=== PATIENT | male | born 1950 | race Caucasian/White ===

== ENCOUNTER 2016-10-18 07:53 | Emergency (ER) | payer MEDICARE ==
[2016-10-18 08:17] VITALS: BP 126/79
[2016-10-18 08:52] LABS: Urine Bacteria Absent (Absent); Urine Bilirubin Negative (Negative); Urine Glucose 1+(50 mg/dL) (Negative); Urine Nitrite Negative (Negative)
[2016-10-18 09:04] LABS: Hematocrit 47 % (42-52); Hemoglobin 15.9 g/dl (14.0-18.0); Mean Corpuscular HGB Conc 34 g/dl (31-36); Mean Corpuscular Hemoglobin 30 pg (27-31); Mean Corpuscular Volume 90 fL (80-94); Mean Platelet Volume 8 um3 (7.4-10.4); Red Blood Count 5.26 10^6/ul (4.0-5.4); Red Cell Distribution Width 13 % (10.5-15); White Blood Count 9.7 10^3/ul (3.5-10.8)
[2016-10-18 09:19] LABS: BUN/Creatinine Ratio 12.1 (8-20); C Reactive Protein 152.23 mg/L (< 5.00); Calcium 9.1 mg/dL (8.6-10.3); EGFR Non-African American 50.5 (>60); Globulin 3.2 g/dL (2-4); Potassium 3.4 mmol/L (3.5-5.0); Total Bilirubin 1.6 mg/dL (0.2-1.0); Total Protein 7.2 g/dL (6.4-8.9)
[2016-10-18] MEDS ORDERED: Sulfamethox/Trimethoprim DS 800/160* TAB PO ONE (10:03)
--- NOTE | 2016-10-18 10:08 | ED ---
Dewey Molina Matthew, scribed for Bola Esqueda MD on 10/18/16 at 0843 . GI/ HPI - HPI Summary HPI Summary: A 66 y/o male presents to the ED with hematuria since early this morning. The patient had dysuria that began two days ago that mild improved yesterday; however at 24:00 yesterday the discomfort intensified. The pain is described as burning and rated 8/10 in severity. Then at approximately 3:00 today, the patient began to have hematuria. The patient denies bladder spasms, fever, chills, and testicular pain. He is not currently on blood thinners. He has a Hx of an enlarged prostate. The patient has not seen a urologist. - History of Current Complaint Chief Complaint: EDUrogenitalProblems Time Seen by Provider: 10/18/16 08:15 Stated Complaint: BLOOD IN URINE Hx Obtained From: Patient Onset/Duration: Started Hours Ago, Atraumatic, Still Present Timing: Constant Severity: Moderate Current Severity: Moderate Pain Intensity: 8 Additional Locations for Males: Penis Pain Characteristics: Burning Associated Signs and Symptoms: Positive: Hematuria, Dysuria. Negative: Fever, Chills Additional Signs & Symptoms: Negative: Penile Swelling, Penile Discharge Alleviating Factor(s): Nothing - Allergy/Home Medications Allergies/Adverse Reactions: Allergies Allergy/AdvReac Type Severity Reaction Status Date / Time No Known Allergies Allergy Verified 10/18/16 08:04 PMH/Surg Hx/FS Hx/Imm Hx Endocrine/Hematology History: Denies: Hx Diabetes Cardiovascular History: Reports: Hx Hypertension, Other Cardiovascular Problems/ Disorders - Hx HTN Denies: Hx Pacemaker/ICD Musculoskeletal History: Reports: Other Musculoskeletal History - L knee repair Sensory History: Denies: Hx Hearing Aid Psychiatric History: Denies: Hx Panic Disorder - Surgical History Surgery Procedure, Year, and Place: L knee repair , Lower L abdominal fatty tumor removed , cervical spine bone spur removed 2005, R cataract removed 2011 Infectious Disease History: No Infectious Disease History: Denies: Traveled Outside the [place] in Last 30 Days - Family History Known Family History: Positive: Cardiac Disease, Diabetes - Social History Alcohol Use: Occasionally Substance Use Type: Reports: None Hx Tobacco Use: No Smoking Status (MU): Never Smoked Tobacco Review of Systems Constitutional: Negative Negative: Fever, Chills Eyes: Negative ENT: Negative Cardiovascular: Negative Respiratory: Negative Gastrointestinal: Negative Positive: burning, dysuria, hematuria Musculoskeletal: Negative Skin: Negative Neurological: Negative Psychological: Normal All Other Systems Reviewed And Are Negative: Yes Physical Exam Triage Information Reviewed: Yes Vital Signs On Initial Exam: Initial Vitals Temp Pulse Resp BP Pulse Ox 98.7 F 75 16 126/79 97 10/18/16 08:04 10/18/16 08:04 10/18/16 08:04 10/18/16 08:04 10/18/16 08:04 Vital Signs Reviewed: Yes Appearance: Positive: Well-Appearing, No Pain Distress Skin: Positive: Warm, Skin Color Reflects Adequate Perfusion, Dry Head/Face: Positive: Normal Head/Face Inspection Eyes: Positive: EOMI, CHELSIE ENT: Positive: Normal ENT inspection Neck: Positive: Supple, Nontender Cardiovascular: Positive: RRR Abdomen Description: Positive: Soft, Other: - Mild suprapubic tenderness. Negative: Guarding Male Genital Exam: Positive: other - Mild urethral tenderness. Negative: lesions Musculoskeletal: Positive: Normal, Strength/ROM Intact Neurological: Positive: Normal, Sensory/Motor Intact, Alert, Oriented to Person Place, Time Psychiatric: Positive: Anxious - mildly Diagnostics - Vital Signs Vital Signs Temp Pulse Resp BP Pulse Ox 10/18/16 08:04 98.7 F 75 16 126/79 97 - Laboratory Lab Results: Lab Results 10/18/16 10/18/16 10/18/16 Range/Units 08:13 08:55 08:55 WBC 9.7 (3.5-10.8) 10^3/ul RBC 5.26 (4.0-5.4) 10^6/ul Hgb 15.9 (14.0-18.0) g/dl Hct 47 (42-52) % MCV 90 (80-94) fL MCH 30 (27-31) pg MCHC 34 (31-36) g/dl RDW 13 (10.5-15) % Plt Count 153 (150-450) 10^3/ul MPV 8 (7.4-10.4) um3 Neut % (Auto) 85.6 H (38-83) % Lymph % (Auto) 7.5 L (25-47) % [place] % (Auto) 6.0 (1-9) % Eos % (Auto) 0.6 (0-6) % Baso % (Auto) 0.3 (0-2) % Absolute Neuts (auto) 8.3 H (1.5-7.7) 10^3/ul Absolute Lymphs (auto) 0.7 L (1.0-4.8) 10^3/ul Absolute Monos (auto) 0.6 (0-0.8) 10^3/ul Absolute Eos (auto) 0.1 (0-0.6) 10^3/ul Absolute Basos (auto) 0 (0-0.2) 10^3/ul Absolute Nucleated RBC 0 10^3/ul Nucleated RBC % 0 INR (Anticoag Therapy) 1.14 H (0.89-1.11) APTT 28.0 (26.0-36.3) seconds Sodium (133-145) mmol/L Potassium (3.5-5.0) mmol/L Chloride (101-111) mmol/L Carbon Dioxide (22-32) mmol/L Anion Gap (2-11) mmol/L BUN (6-24) mg/dL Creatinine (0.67-1.17) mg/dL Est GFR ( Amer) (>60) Est GFR (Non-Af Amer) (>60) BUN/Creatinine Ratio (8-20) Glucose (70-100) mg/dL Calcium (8.6-10.3) mg/dL Total Bilirubin (0.2-1.0) mg/dL AST (13-39) U/L ALT (7-52) U/L Alkaline Phosphatase (34-104) U/L C-Reactive Protein (< 5.00) mg/L Total Protein (6.4-8.9) g/dL Albumin (3.2-5.2) g/dL Globulin (2-4) g/dL Albumin/Globulin Ratio (1-3) Urine Color Red A Urine Appearance Turbid Urine pH 6.0 (5-9) Ur Specific [place] 1.028 (1.010-1.030) Urine Protein 3+(>=500 mg/dl) H (Negative) Urine Ketones Trace H (Negative) Urine Blood 3+ H (Negative) Urine Nitrate Negative (Negative) Urine Bilirubin Negative (Negative) Urine Urobilinogen Negative (Negative) Ur Leukocyte Esterase Trace H (Negative) Urine WBC (Auto) Absent (Absent) Urine RBC (Auto) 3+(>10/hpf) H (Absent) Urine Bacteria Absent (Absent) Urine Glucose 1+(50 mg/dl) H (Negative) Urine Ascorbic Acid Not Reportable 10/18/16 Range/Units 08:55 WBC (3.5-10.8) 10^3/ul RBC (4.0-5.4) 10^6/ul Hgb (14.0-18.0) g/dl Hct (42-52) % MCV (80-94) fL MCH (27-31) pg MCHC (31-36) g/dl RDW (10.5-15) % Plt Count (150-450) 10^3/ul MPV (7.4-10.4) um3 Neut % (Auto) (38-83) % Lymph % (Auto) (25-47) % [place] % (Auto) (1-9) % Eos % (Auto) (0-6) % Baso % (Auto) (0-2) % Absolute Neuts (auto) (1.5-7.7) 10^3/ul Absolute Lymphs (auto) (1.0-4.8) 10^3/ul Absolute Monos (auto) (0-0.8) 10^3/ul Absolute Eos (auto) (0-0.6) 10^3/ul Absolute Basos (auto) (0-0.2) 10^3/ul Absolute Nucleated RBC 10^3/ul Nucleated RBC % INR (Anticoag Therapy) (0.89-1.11) APTT (26.0-36.3) seconds Sodium 131 L (133-145) mmol/L Potassium 3.4 L (3.5-5.0) mmol/L Chloride 97 L (101-111) mmol/L Carbon Dioxide 24 (22-32) mmol/L Anion Gap 10 (2-11) mmol/L BUN 17 (6-24) mg/dL Creatinine 1.40 H (0.67-1.17) mg/dL Est GFR ( Amer) 65.0 (>60) Est GFR (Non-Af Amer) 50.5 (>60) BUN/Creatinine Ratio 12.1 (8-20) Glucose 133 H (70-100) mg/dL Calcium 9.1 (8.6-10.3) mg/dL Total Bilirubin 1.60 H (0.2-1.0) mg/dL AST 19 (13-39) U/L ALT 23 (7-52) U/L Alkaline Phosphatase 51 (34-104) U/L C-Reactive Protein 152.23 H (< 5.00) mg/L Total Protein 7.2 (6.4-8.9) g/dL Albumin 4.0 (3.2-5.2) g/dL Globulin 3.2 (2-4) g/dL Albumin/Globulin Ratio 1.3 (1-3) Urine Color Urine Appearance Urine pH (5-9) Ur Specific [place] (1.010-1.030) Urine Protein (Negative) Urine Ketones (Negative) Urine Blood (Negative) Urine Nitrate (Negative) Urine Bilirubin (Negative) Urine Urobilinogen (Negative) Ur Leukocyte Esterase (Negative) Urine WBC (Auto) (Absent) Urine RBC (Auto) (Absent) Urine Bacteria (Absent) Urine Glucose (Negative) Urine Ascorbic Acid Result Diagrams: 10/18/16 08:55 10/18/16 08:55 Lab Statement: Any lab studies that have been ordered have been reviewed, and results considered in the medical decision making process. Re-Evaluation - Re-Evaluation First Eval Re-Evaluation Time: 10:01 Change: Improved Comment: The labs were reviewed with the patient. GIGU Course/Dx - Course Assessment/Plan: WELL IN ED. RX BACTRIM. F/U WITH UROLOGY. DISCHARGE HOME STABLE. - Diagnoses Provider Diagnoses: Hematuria, UTI (urinary tract infection) Discharge - Discharge Plan Condition: Stable Disposition: HOME Prescriptions: Sulfamethox/Trimethoprim DS* [Bactrim DS 800/160 TAB*] 1 tab PO BID #20 tab Patient Education Materials: Urinary Tract Infection in Men (ED), Hematuria (ED ) Referrals: Evan Castillo MD [Primary Care Provider] - Real Brown MD [Medical Doctor] - David Bain MD [Medical Doctor] - [facility] [Provider Group] Additional Instructions: FOLLOW UP WITH YOUR DOCTOR AND THE UROLOGIST. DRINK PLENTY OF FLUIDS. RETURN TO THE EMERGENCY DEPARTMENT FOR ANY WORSENING OF YOUR CONDITION; FEVER, YOU FEEL ILL, YOU ARE NOT ABLE TO URINATE OR QUESTIONS OR CONCERNS. The documentation as recorded by the Samson michaelbo,Travis accurately reflects the service I personally performed and the decisions made by me, Bola Esqueda MD.
== END 2016-10-18 10:20 | disposition home or self-care (01) ==
LOC: ED 07:53
DX: R31.9 Hematuria, unspecified (principal); N39.0 Urinary tract infection, site not specified; I10 Essential (primary) hypertension
CPT/HCPCS: 36415; 80053; 81003; 81015; 85025; 85610; 85730; 86140; 87086; 99283; A9270-GY

== ENCOUNTER 2016-10-26 17:08 | Emergency (ER) | payer MEDICARE ==
--- NOTE | 2016-10-26 18:21 | UC ---
Abdominal Pain Male HPI - HPI Summary HPI Summary: 66 yo male presents with a 2-3 day hx of f/c and poorly localized abd pain nausea but no vomiting 8 days ago had gross hematuria and dysuria seen at ED started on bactrim Urine culture showed no growth - History of Current Complaint Chief Complaint: UCAbdominalPain Stated Complaint: ABDOMINAL PAIN Time Seen by Provider: 10/26/16 18:09 Hx Obtained From: Patient Onset/Duration: Gradual Onset, Lasting Days Severity Initially: Mild Severity Currently: Moderate Pain Intensity: 6 Pain Scale Used: 0-10 Numeric Location: Diffuse Radiates: No Character: Aching, Colicy Aggravating Factor(s):: Nothing Alleviating Factor(s): Nothing Associated Signs And Symptoms: Positive: Fever, Other - fatigue - Allergies/Home Medications Allergies/Adverse Reactions: Allergies Allergy/AdvReac Type Severity Reaction Status Date / Time No Known Allergies Allergy Verified 10/18/16 08:04 PMH/Surg Hx/FS Hx/Imm Hx Previously Healthy: Yes Endocrine History Of: Denies: Diabetes Cardiovascular History Of: Reports: Hypertension Denies: Pacemaker/ICD - Surgical History Surgical History: Yes Surgery Procedure, Year, and Place: L knee repair , Lower L abdominal fatty tumor removed , cervical spine bone spur removed 2005, R cataract removed 2011 - Family History Known Family History: Positive: Cardiac Disease, Diabetes - Social History Alcohol Use: Occasionally Substance Use Type: None Smoking Status (MU): Never Smoked Tobacco Review of Systems Constitutional: Fever, Chills, Fatigue Gastrointestinal: Abdominal Pain, Other - nausea Genitourinary: Dysuria, Hematuria - about 4 days Neurovascular: Negative Musculoskeletal: Negative Neurological: Negative Psychological: Negative All Other Systems Reviewed And Are Negative: Yes Physical Exam Triage Information Reviewed: Yes Appearance: Well-Appearing, No Pain Distress, Well-Nourished Vital Signs: Initial Vital Signs Temp 101.8 F 10/26/16 17:33 Pulse 90 10/26/16 17:33 Resp 18 10/26/16 17:33 Pulse Ox 99 10/26/16 17:33 Vital Signs Reviewed: Yes Eyes: Positive: Conjunctiva Clear ENT: Positive: Normal ENT inspection, Hearing grossly normal, TMs normal. Negative: Nasal congestion, Nasal drainage, Tonsillar exudate, Trismus, Muffled/ hoarse voice Neck: Positive: Supple, Nontender Respiratory: Positive: Lungs clear, Normal breath sounds, No respiratory distress, No accessory muscle use Cardiovascular: Positive: RRR, No Murmur Abdomen Description: Positive: Soft. Negative: Nontender - tender LUQ, Bruit, CVA Tenderness (R), CVA Tenderness (L), Guarding, Peritoneal Signs, Pulsatile Mass, Splenomegaly Musculoskeletal: Positive: ROM Intact, No Edema Neurological Exam: Normal Neurological: Positive: Alert Psychological Exam: Normal Skin Exam: Normal Abd Pain Male Course/Dx - Course Course Of Treatment: d/w Dr. Younger accepts pt ([facility] [place] [facility] declines EMS transfer - Differential Dx/Clinical Impression Provider Diagnoses: abdominal pain of uncertain cause Discharge - Discharge Plan Condition: Stable Disposition: TRANS HIGHER LVL OF CARE FAC
[2016-10-26] MEDS ORDERED: Acetaminophen TAB* 325 MG PO ONE (18:41)
== END 2016-10-26 18:56 | disposition short-term general hospital (02) ==
LOC: UCEAST 17:08
DX: R10.12 Left upper quadrant pain (principal); R11.0 Nausea; R50.9 Fever, unspecified; R53.83 Other fatigue
CPT/HCPCS: 81002; 87086; 99212; A9270-GY; G0463

== ENCOUNTER 2016-10-26 19:30 | Emergency (ER) | payer MEDICARE ==
[2016-10-26 20:46] LABS: Hematocrit 47 % (42-52); Hemoglobin 15.9 g/dl (14.0-18.0); Mean Corpuscular HGB Conc 34 g/dl (31-36); Mean Corpuscular Hemoglobin 30 pg (27-31); Mean Corpuscular Volume 89 fL (80-94); Mean Platelet Volume 8 um3 (7.4-10.4); Red Blood Count 5.32 10^6/ul (4.0-5.4); Red Cell Distribution Width 13 % (10.5-15); White Blood Count 8.7 10^3/ul (3.5-10.8)
[2016-10-26 21:00] LABS: Albumin 3.9 g/dL (3.2-5.2); BUN/Creatinine Ratio 10.6 (8-20); EGFR African American 41.4 (>60); EGFR Non-African American 32.2 (>60); Globulin 2.9 g/dL (2-4); Total Protein 6.8 g/dL (6.4-8.9)
[2016-10-26 21:58] LABS: Calcium 9.2 mg/dL (8.6-10.3)
[2016-10-26] MEDS ORDERED: NS 0.9% 1000 ML* 1,000 ML IV ONE (23:51)
[2016-10-27 02:19] LABS: Urine Bilirubin Negative (Negative); Urine Glucose Negative (Negative); Urine Nitrite Negative (Negative)
--- NOTE | 2016-10-27 04:20 | ED ---
Tyler Molina Rebecca, scribed for Michael Sweet on 10/26/16 at 2338 . Abdominal Pain/Male - HPI Summary HPI Summary: Pt is a 66 y/o M referred from Urgent Care who presents to ED c/o abd pain. Pain began suddenly 2 days ago and has been constant since onset. Pain is diffuse without radiation, characterized as pressure and currently ranked 8/10. Sx aggravated and alleviated by nothing. Additionally c/o fever, chills and fatigue. Denies N/V/D, constipation, cough, CP, SOB. PMHx diverticulosis (3.5 years ago). No PMHx kidney problems. No PSHx appy, cholecystectomy. - History of Current Complaint Chief Complaint: EDAbdPain Stated Complaint: ABD PAIN-SENT FROM [facility] Time Seen by Provider: 10/26/16 23:36 Hx Obtained From: Patient Onset/Duration: Sudden Onset Timing: Constant Severity Initially: Moderate Severity Currently: Severe Pain Intensity: 8 Pain Scale Used: 0-10 Numeric Location: Diffuse Radiates: No Character: Other: - Pressure Aggravating Factor(s): Nothing Alleviating Factor(s): Nothing Associated Signs And Symptoms: Positive: Fever, Other - Chills, fatigue; Denies SOB. Negative: Cough, Chest Pain, Constipation, Nausea, Vomiting, Diarrhea - Allergies/Home Medications Allergies/Adverse Reactions: Allergies Allergy/AdvReac Type Severity Reaction Status Date / Time No Known Allergies Allergy Verified 10/18/16 08:04 PMH/Surg Hx/FS Hx/Imm Hx Endocrine/Hematology History: Denies: Hx Diabetes Cardiovascular History: Reports: Hx Hypertension Denies: Hx Pacemaker/ICD GI History: Reports: Other GI Disorders - Hx Diverticulosis Musculoskeletal History: Reports: Other Musculoskeletal History - L knee repair Sensory History: Denies: Hx Hearing Aid Psychiatric History: Denies: Hx Panic Disorder - Surgical History Surgery Procedure, Year, and Place: L knee repair , Lower L abdominal fatty tumor removed , cervical spine bone spur removed 2005, R cataract removed 2011 Infectious Disease History: No Infectious Disease History: Reports: Hx Hepatitis Denies: Traveled Outside the [place] in Last 30 Days - Family History Known Family History: Positive: Cardiac Disease, Diabetes - Social History Alcohol Use: Occasionally Substance Use Type: Reports: None Hx Tobacco Use: No Smoking Status (MU): Never Smoked Tobacco Review of Systems Positive: Fever, Chills, Fatigue Negative: Chest Pain Negative: Shortness Of Breath, Cough Positive: Abdominal Pain, Other - Denies constipation. Negative: Vomiting, Diarrhea, Nausea All Other Systems Reviewed And Are Negative: Yes Physical Exam Triage Information Reviewed: Yes Vital Signs On Initial Exam: Initial Vitals Temp Pulse Resp BP Pulse Ox 98 F 78 18 102/59 100 10/26/16 19:45 10/26/16 19:45 10/26/16 19:45 10/26/16 19:45 10/26/16 19:45 Vital Signs Reviewed: Yes Appearance: Positive: Well-Appearing, No Pain Distress Skin: Positive: Warm, Skin Color Reflects Adequate Perfusion, Dry Head/Face: Positive: Normal Head/Face Inspection Eyes: Positive: EOMI, CHELSIE ENT: Positive: Other - Dry mucous membranes Neck: Positive: Supple, Nontender Respiratory/Lung Sounds: Positive: Clear to Auscultation, Breath Sounds Present Cardiovascular: Positive: RRR, Pulses are Symmetrical in both Upper and Lower Extremities Abdomen Description: Positive: Soft. Negative: Nontender - Tendernes sin the epigastrum and RUQ Bowel Sounds: Positive: Present Musculoskeletal: Positive: Normal, Strength/ROM Intact Neurological: Positive: Normal, Sensory/Motor Intact, Alert, Oriented to Person Place, Time Diagnostics - Vital Signs Vital Signs Temp Pulse Resp BP Pulse Ox 10/26/16 19:45 98 F 78 18 102/59 100 - Laboratory Lab Results: Lab Results 10/26/16 10/26/16 10/26/16 Range/Units 20:35 20:35 20:35 WBC 8.7 (3.5-10.8) 10^3/ul RBC 5.32 (4.0-5.4) 10^6/ul Hgb 15.9 (14.0-18.0) g/dl Hct 47 (42-52) % MCV 89 (80-94) fL MCH 30 (27-31) pg MCHC 34 (31-36) g/dl RDW 13 (10.5-15) % Plt Count 170 (150-450) 10^3/ul MPV 8 (7.4-10.4) um3 Neut % (Auto) 89.2 H (38-83) % Lymph % (Auto) 5.8 L (25-47) % [place] % (Auto) 4.3 (1-9) % Eos % (Auto) 0.4 (0-6) % Baso % (Auto) 0.3 (0-2) % Absolute Neuts (auto) 7.8 H (1.5-7.7) 10^3/ul Absolute Lymphs (auto) 0.5 L (1.0-4.8) 10^3/ul Absolute Monos (auto) 0.4 (0-0.8) 10^3/ul Absolute Eos (auto) 0 (0-0.6) 10^3/ul Absolute Basos (auto) 0 (0-0.2) 10^3/ul Absolute Nucleated RBC 0.01 10^3/ul Nucleated RBC % 0.1 INR (Anticoag Therapy) 1.25 H (0.89-1.11) APTT 28.4 (26.0-36.3) seconds Sodium 129 L (133-145) mmol/L Potassium 4.0 (3.5-5.0) mmol/L Chloride 98 L (101-111) mmol/L Carbon Dioxide 23 (22-32) mmol/L Anion Gap 8 (2-11) mmol/L BUN 22 (6-24) mg/dL Creatinine 2.07 H (0.67-1.17) mg/dL Est GFR ( Amer) 41.4 (>60) Est GFR (Non-Af Amer) 32.2 (>60) BUN/Creatinine Ratio 10.6 (8-20) Glucose 107 H (70-100) mg/dL Lactic Acid (0.5-2.0) mmol/L Calcium 9.2 (8.6-10.3) mg/dL Total Bilirubin 1.00 (0.2-1.0) mg/dL AST 27 (13-39) U/L ALT 32 (7-52) U/L Alkaline Phosphatase 56 (34-104) U/L Total Protein 6.8 (6.4-8.9) g/dL Albumin 3.9 (3.2-5.2) g/dL Globulin 2.9 (2-4) g/dL Albumin/Globulin Ratio 1.3 (1-3) 10/26/16 Range/Units 20:35 WBC (3.5-10.8) 10^3/ul RBC (4.0-5.4) 10^6/ul Hgb (14.0-18.0) g/dl Hct (42-52) % MCV (80-94) fL MCH (27-31) pg MCHC (31-36) g/dl RDW (10.5-15) % Plt Count (150-450) 10^3/ul MPV (7.4-10.4) um3 Neut % (Auto) (38-83) % Lymph % (Auto) (25-47) % [place] % (Auto) (1-9) % Eos % (Auto) (0-6) % Baso % (Auto) (0-2) % Absolute Neuts (auto) (1.5-7.7) 10^3/ul Absolute Lymphs (auto) (1.0-4.8) 10^3/ul Absolute Monos (auto) (0-0.8) 10^3/ul Absolute Eos (auto) (0-0.6) 10^3/ul Absolute Basos (auto) (0-0.2) 10^3/ul Absolute Nucleated RBC 10^3/ul Nucleated RBC % INR (Anticoag Therapy) (0.89-1.11) APTT (26.0-36.3) seconds Sodium (133-145) mmol/L Potassium (3.5-5.0) mmol/L Chloride (101-111) mmol/L Carbon Dioxide (22-32) mmol/L Anion Gap (2-11) mmol/L BUN (6-24) mg/dL Creatinine (0.67-1.17) mg/dL Est GFR ( Amer) (>60) Est GFR (Non-Af Amer) (>60) BUN/Creatinine Ratio (8-20) Glucose (70-100) mg/dL Lactic Acid 0.9 (0.5-2.0) mmol/L Calcium (8.6-10.3) mg/dL Total Bilirubin (0.2-1.0) mg/dL AST (13-39) U/L ALT (7-52) U/L Alkaline Phosphatase (34-104) U/L Total Protein (6.4-8.9) g/dL Albumin (3.2-5.2) g/dL Globulin (2-4) g/dL Albumin/Globulin Ratio (1-3) Result Diagrams: 10/26/16 20:35 10/26/16 20:35 Lab Statement: Any lab studies that have been ordered have been reviewed, and results considered in the medical decision making process. - Radiology CXR Xray Interpretation: No Acute Changes Radiology Interpretation Completed By: ED Physician - CT CT Abd/Pel CT Interpretation Completed By: Radiologist - "No nephrolithiasis, ureterolithiasis or obstructive uropathy. No bladder calculi. Unremarkable pancreas and gallbladder. No bowel obstruction, colitis, free fluid or free air. Normal appendix. Diverticulosis without acute diverticulitis. Faint central mesenteric fat haziness with small mesenteric lymph nodes, possible mesenteritis. Enlarged prostate. Small umbilical and bilateral inguinal hernias containing fat. Right hyrocele, incompletely seen." - Ultrasound No standard instances Ultrasound Interpretation Completed By: Radiologist - Gallbladder US: "Essentialy normal appearance of the gallbladder. No findings to indicate cholecystitis. CBD within normal limits. Hepatic steatosis noted. Normal appearance of the right kidney. Fatty infiltration of the visualized pancreas." Abdominal Pain Fem Course/Dx - Course Assessment/Plan: Pt is a 66 y/o M who presents to ED with a CC of diffuse abd pain for 2 days. C/o fever, chills and fatigue. Denies N/V/D, constipation, cough, CP, SOB. Labs, CT Abd/Pel, US gallbladder and CXR reveal no acute abdominal pathology. Labs reveal mild hyponatremia and mild renal failure. Asministered fluids in the ED. Pt will be d/c to home with a dx of abdominal pain, hyponatremia and mild renal failure with a followup from PCP. Instructed to return to ED if pain worsens before followup. - Diagnoses Provider Diagnoses: Mild Renal Failure, Hyponatremia, Abdominal pain Discharge - Discharge Plan Condition: Stable Disposition: HOME Patient Education Materials: Hyponatremia (ED), Abdominal Pain (ED) Referrals: Ping Felipe MD [Primary Care Provider] - 3 Days (Follow up with your primary care physician within the next 3 days. ) Additional Instructions: Return to ED immediately if symptoms return or worsen within the next 3 days. The documentation as recorded by the Tyler michael Rebecca accurately reflects the service I personally performed and the decisions made by Micki campbell Emmanuel.
[2016-10-27 04:30] VITALS: BP 117/65
--- NOTE | 2016-10-27 07:59 | RAD ---
HISTORY: Abdominal pressure, cholecystitis COMPARISONS: February 13, 2013 TECHNIQUE: Multiple transverse and longitudinal ultrasound images were obtained of the right upper quadrant of the abdomen using grayscale and color Doppler imaging. FINDINGS: LIVER: The liver is diffusely echogenic and coarse in echotexture, with decreased acoustic transmission. There is a small hepatic cyst measuring 0.5 cm.. There is normal hepatopedal flow of the portal vein on Doppler imaging. BILIARY TREE: There is no intrahepatic or extrahepatic biliary dilatation. The common duct measures 0.3 cm. GALLBLADDER: The gallbladder is well-visualized. There is no cholelithiasis, gallbladder wall thickening, pericholecystic fluid, or sonographic Horne sign. PANCREAS: The head of the pancreas is unremarkable. The tail of the pancreas is not well visualized secondary to overlying bowel gas. RIGHT KIDNEY: The right kidney is normal in shape, size, contour, and echogenicity. There is no hydronephrosis or nephrolithiasis. The right kidney measures 11.2 x 4.2 x 4.8 cm. AORTA AND IVC: The aorta and IVC are unremarkable. FLUID: There are no pleural effusions. There is no free fluid within the hepatorenal recess. OTHER FINDINGS: None. IMPRESSION: FATTY LIVER. NO CHOLELITHIASIS OR SONOGRAPHIC FEATURES OF ACUTE CHOLECYSTITIS.
--- NOTE | 2016-10-27 08:02 | RAD ---
INDICATION: Lower chest and abdominal pain. COMPARISON: There are no prior studies available for comparison. TECHNIQUE: Dual-energy PA and lateral views of the chest were obtained. FINDINGS: The heart is within normal limits in size. Mediastinal and hilar contours appear within normal limits. The lungs are clear. No pleural effusion is present. IMPRESSION: NO EVIDENCE FOR ACTIVE CARDIOPULMONARY DISEASE.
--- NOTE | 2016-10-27 08:07 | RAD ---
CLINICAL HISTORY: Abdominal pain, diverticulitis, COMPARISON: February 13, 2013 TECHNIQUE: Multiple contiguous axial CT scans were obtained of the abdomen and pelvis, without intravenous contrast enhancement. Coronal and sagittal multiplanar reformations are submitted for review. Oral contrast was not administered. FINDINGS: The study is limited by the lack of intravenous contrast. This limits evaluation of the solid organs and vasculature. LUNG BASES: The lung bases are clear. LIVER: The liver is normal in shape, size, contour, and attenuation. BILE DUCTS: There is no intrahepatic or extrahepatic biliary dilatation. GALLBLADDER: The gallbladder is normal, without pericholecystic inflammatory change. PANCREAS: The pancreas is normal, without mass or ductal dilatation. SPLEEN: Normal in size and appearance. UPPER GI TRACT: Evaluation of the gastrointestinal tract is limited by incomplete gastric distention. The upper GI tract is unremarkable. SMALL BOWEL AND MESENTERY: The small bowel is normal in contour, course, and caliber. There is no obstruction or dilatation. There is mild stranding of the mesenteric fat with small mesenteric lymph nodes. COLON: There are multiple diverticula of the sigmoid colon. There is no pericolonic inflammatory change. ADRENALS: Normal bilaterally. KIDNEYS: The kidneys are normal in shape, size, contour, and axis. There is no hydronephrosis or nephrolithiasis. BLADDER: The bladder is smooth in contour. PELVIC ORGANS: The prostate is diffusely enlarged. The seminal vesicles are symmetric. There is a right-sided hydrocele. AORTA: The aorta is normal. IVC: Unremarkable LYMPH NODES: As noted above, there are small mesenteric lymph nodes. There is no lymphadenopathy by size criteria. ABDOMINAL WALL: There is a small fat-containing umbilical hernia BONES AND SOFT TISSUES: Degenerative changes are noted along the spine OTHER: None IMPRESSION: 1. DIVERTICULOSIS WITHOUT PERICOLONIC INFLAMMATORY CHANGE TO SUGGEST ACUTE DIVERTICULITIS. 2. ENLARGED PROSTATE. 3. MILD STRANDING OF THE MESENTERIC FAT WITH SMALL MESENTERIC LYMPH NODES. THERE IS NO LYMPHADENOPATHY SIZE CRITERIA
== END 2016-10-27 04:25 | disposition home or self-care (01) ==
LOC: ED 19:30
DX: R50.9 Fever, unspecified (principal); R10.9 Unspecified abdominal pain; R68.83 Chills (without fever); E87.1 Hypo-osmolality and hyponatremia; R53.83 Other fatigue; Z87.19 Personal history of other diseases of the digestive system; N40.0 Benign prostatic hyperplasia without lower urinary tract symptoms
CPT/HCPCS: 36415; 71020; 74176; 76705; 80053; 81002; 81003; 83605; 83690; 85025; 85610; 85730; 87086; 96360; 99212; 99284; A9270-GY; G0463

== ENCOUNTER 2018-03-12 18:48 | Emergency (ER) | payer MEDICARE ==
[2018-03-12 19:48] VITALS: BP 142/77
--- NOTE | 2018-03-12 21:07 | RAD ---
INDICATION: Left lower quadrant pain COMPARISON: None TECHNIQUE: 3 views the abdomen were obtained. FINDINGS: There are no acute bony or soft tissue abnormalities. The bowel gas pattern is normal. There is a moderate amount of stool overlying the renal shadows. There are no obvious coarse calcifications overlying the expected location of the bilateral collecting systems or ureters. IMPRESSION:Normal KUB.
--- NOTE | 2018-03-17 07:07 | ED ---
Gilma Molina Jade, scribed for Van Chavez MD on 03/12/18 at 2033 . Abdominal Pain/Male - HPI Summary HPI Summary: Pt is a 67 y/o male who present to [facility] [place]/o LLQ pain. Pt states the discomfort started 6 weeks ago, and is intermittent. He saw his PCP for constipation at this time, and is supposed to see his PCP again tomorrow. He has started to have pain in addition to discomfort the past few days, and says its feels like pressure and 4/10 in intensity. Pt also complains of loose stool today, and mild upper back pain. He denies any fever or dysuria. PMHx bladder polyps, diverticulosis, and enlarged prostate. He denies taking any pain medications, but is on medication for HTN and his prostate. PSHx abdominal tumor removal. - History of Current Complaint Chief Complaint: UCGI Stated Complaint: PAIN IN L SIDE Time Seen by Provider: 03/12/18 20:16 Hx Obtained From: Patient Onset/Duration: Gradual Onset, Still Present Timing: Lasting Weeks - 6 weeks ago Severity Initially: Severe - 6-8/10 Severity Currently: Moderate Pain Intensity: 4 Pain Scale Used: 0-10 Numeric Location: Discrete At: LLQ Character: Other: - Pressure Associated Signs And Symptoms: Positive: Diarrhea - Loose stool - Allergies/Home Medications Allergies/Adverse Reactions: Allergies Allergy/AdvReac Type Severity Reaction Status Date / Time No Known Allergies Allergy Verified 03/12/18 19:49 Home Medications: Home Medications Lisinopril/Hydrochlorothiazide 20 mg PO DAILY 03/12/18 [History Confirmed ] PMH/Surg Hx/FS Hx/Imm Hx Endocrine/Hematology History: Denies: Hx Diabetes Cardiovascular History: Reports: Hx Hypertension, Other Cardiovascular Problems/ Disorders - Hx HTN Denies: Hx Pacemaker/ICD GI History: Reports: Other GI Disorders - Hx Diverticulosis History: Reports: Hx Benign Prostatic Hyperplasia Musculoskeletal History: Reports: Other Musculoskeletal History - L knee repair Sensory History: Denies: Hx Hearing Aid Psychiatric History: Denies: Hx Panic Disorder - Surgical History Surgery Procedure, Year, and Place: L knee repair , Lower L abdominal fatty tumor removed , cervical spine bone spur removed 2005, R cataract removed 2011 Infectious Disease History: Yes Infectious Disease History: Reports: Hx Hepatitis Denies: Traveled Outside the [place] in Last 30 Days - Family History Known Family History: Positive: Cardiac Disease, Diabetes - Social History Alcohol Use: Occasionally Substance Use Type: Reports: None Hx Tobacco Use: No Smoking Status (MU): Never Smoked Tobacco Review of Systems Positive: Fever Positive: Abdominal Pain - LLQ, Diarrhea - Loose stool Negative: dysuria Positive: Myalgia - Mild upper back pain All Other Systems Reviewed And Are Negative: Yes Physical Exam - Summary Physical Exam Summary: Appearance: Well appearing, no pain distress Skin: warm, dry, reflects adequate perfusion Head/face: normal Eyes: EOMI, CHELSIE ENT: normal Neck: supple, non-tender Respiratory: CTA, breath sounds present Cardiovascular: RRR, pulses symmetrical Abdomen: non-tender, soft. No pulsatile abdominal mass. No guarding. Bowel Sounds: Normal Musculoskeletal: normal, strength/ROM intact Neuro: normal, sensory motor intact, A&Ox3 Triage Information Reviewed: Yes Vital Signs On Initial Exam: Initial Vitals Temp Pulse Resp BP Pulse Ox 97.4 F 55 16 142/77 99 03/12/18 19:42 03/12/18 19:42 03/12/18 19:42 03/12/18 19:42 03/12/18 19:42 Vital Signs Reviewed: Yes Diagnostics - Vital Signs Vital Signs Temp Pulse Resp BP Pulse Ox 03/12/18 19:42 97.4 F 55 16 142/77 99 - Laboratory Lab Statement: Any lab studies that have been ordered have been reviewed, and results considered in the medical decision making process. - Radiology XR Xray Interpretation: No Acute Changes - Normal KUB. physician reviewed radiology report. Radiology Interpretation Completed By: Radiologist Abdominal Pain Fem Course/Dx - Course Course Of Treatment: I provided an enema with significant relief after KUB. Pt jordan well and will place on bowel regimen. - Diagnoses Provider Diagnoses: Left sided abdominal pain, Constipation Discharge - Sign-Out/Discharge Documenting (check all that apply): Discharge/Admit/Transfer - Discharge - Discharge Plan Condition: Good Disposition: HOME Prescriptions: Bisacodyl SUPP* [Dulcolax Supp*] 10 mg PO BID PRN #6 supp PRN Reason: Constipation Hyoscyamine Sulfate [Levsin] 0.125 mg PO TID PRN #20 tablet PRN Reason: abdominal cramping Patient Education Materials: Constipation (ED), High Fiber Diet (ED), Acute Abdominal Pain (ED) Referrals: Ping Felipe MD [Primary Care Provider] - Additional Instructions: Follow-up with your doctor tomorrow as scheduled. Use MiraLAX 3 times a day until well. Return with fever, vomiting, increased pain, or other concerns. You may need further testing including blood work and/or a CAT scan as discussed. - Billing Disposition and Condition Condition: GOOD Disposition: Home The documentation as recorded by the Gilma michael Jade accurately reflects the service I personally performed and the decisions made by me, Van Chavez MD.
== END 2018-03-12 21:11 | disposition home or self-care (01) ==
LOC: UCEAST 18:48
DX: R10.32 Left lower quadrant pain (principal); K59.00 Constipation, unspecified; R19.7 Diarrhea, unspecified; R50.9 Fever, unspecified; M54.6 Pain in thoracic spine; I10 Essential (primary) hypertension; K57.90 Diverticulosis of intestine, part unspecified, without perforation or abscess without bleeding; N40.0 Benign prostatic hyperplasia without lower urinary tract symptoms; Z82.49 Family history of ischemic heart disease and other diseases of the circulatory system; Z83.3 Family history of diabetes mellitus
CPT/HCPCS: 74018; 99212; G0463

== ENCOUNTER 2018-07-25 14:21 | Emergency (ER) | payer MEDICARE ==
[2018-07-25 15:42] VITALS: BP 110/71
--- NOTE | 2018-07-25 16:24 | UC ---
HPI BURN - HPI Summary HPI Summary: 68-year-old male presents with burn to his right hand. States occurred 2 days ago he accidentally touched the top of a pot he was using to steamed vegetables. States it immediately blistered and yesterday the blister ruptured. He noticed some clear yellow drainage from the wound today. Denies fever, chills, loss of range of motion, numbness or tingling. Left hand dominant. - History of Current Complaint Chief Complaint: UCBurn Stated Complaint: BURN R HAND Time Seen by Provider: 07/25/18 16:10 Hx Obtained From: Patient Occurred: Days Ago - 2 Current Severity: Moderate Pain Intensity: 5 Location: RUE - Dorsal right hand base of thumb Character: Direct Thermal Contact, Blisters: Ruptured Aggravating Factor(s): Nothing Alleviating Factor(s): Cool Soaks Occupational Injury: No - Allergy/Home Medications Allergies/Adverse Reactions: Allergies Allergy/AdvReac Type Severity Reaction Status Date / Time No Known Allergies Allergy Verified 07/25/18 15:43 Home Medications: Home Medications Tamsulosin CAP* [Flomax CAP*] 0.4 mg PO DAILY 07/25/18 [History Confirmed ] PMH/Surg Hx/FS Hx/Imm Hx Cardiovascular History: Hypertension Other GI/ History: BPH - Surgical History Surgical History: Yes Surgery Procedure, Year, and Place: L knee repair , Lower L abdominal fatty tumor removed , cervical spine bone spur removed 2005, R cataract removed 2011, bone spur compressed - Family History Known Family History: Positive: Cardiac Disease, Diabetes - Social History Occupation: Retired Lives: With Family Alcohol Use: Daily Substance Use Type: None Smoking Status (MU): Never Smoked Tobacco Review of Systems Constitutional: Negative Skin: Other - See HPI Motor: Negative Neurovascular: Negative Musculoskeletal: Negative Is Patient Immunocompromised?: No All Other Systems Reviewed And Are Negative: Yes Physical Exam Triage Information Reviewed: Yes Appearance: Well-Appearing, No Pain Distress, Well-Nourished Vital Signs: Initial Vital Signs Temp 98.0 F 07/25/18 15:36 Pulse 55 07/25/18 15:36 Resp 16 07/25/18 15:36 BP 110/71 07/25/18 15:36 Pulse Ox 99 07/25/18 15:36 Respiratory: Positive: Lungs clear, Normal breath sounds Cardiovascular: Positive: RRR, No Murmur, Pulses Normal, Brisk Capillary Refill Musculoskeletal: Positive: Strength Intact, ROM Intact Skin: Positive: Other - Second degree burn to dorsal right hand immediately below thumb with open blister. Healthy granulation tissue to bed of wound with mild erythema to surrounding tissue. Scant amount of serous drainage noted. Burn Calculation - [place] Formula for Fluid Resuscitation Weight: 78.018 kg 24 -Hour Fluid Replacement: 0.0 Course/Dx Burn - Course Course Of Treatment: 68 year old male presents with 2nd degree themal burn to his right hand which occurred 2 day prior. Exam revealed open blister with healthy granulation tissue and no signs of infection. Reviewed wound care and warning symptoms with patient. Verbalizes understanding and agrees with POC. - Diagnoses Clinic Provider Diagnoses: Contact thermal burn 2nd degree right hand Discharge - Sign-Out/Discharge Documenting (check all that apply): Patient Departure All imaging exams completed and their final reports reviewed: No Studies - Discharge Plan Condition: Stable Disposition: HOME Prescriptions: Bacitracin OINT* 113.4 gm .SEE ORDER DAILY #1 tube Patient Education Materials: Superficial Burn (ED) Referrals: Ping Felipe MD [Primary Care Provider] - If Needed Additional Instructions: There is no evidence of infection to the burn on your right hand at this time. Continue to keep the wound clean. Wash it at least once daily with a mild soap and water. Apply bacitracin ointment to the area and keep the wound covered with a nonstick bandage. The dressing to be changed at least once a day or any time it becomes wet or soiled. Use [id number] pain medication such as acetaminophen (Tylenol) or ibuprofen (Advil, Motrin) according to directions as needed for pain. Watch for signs of infection including fever greater than 100.5 F, redness that spreads, swelling of the hand or thumb, pain that is not managed with over-the- counter pain medication, or pus draining from the wound. Seek immediate medical attention should any of these occur. - Billing Disposition and Condition Condition: STABLE Disposition: Home
== END 2018-07-25 16:40 | disposition home or self-care (01) ==
LOC: UCEAST 14:21
DX: T23.201A Burn of second degree of right hand, unspecified site, initial encounter (principal); I10 Essential (primary) hypertension; X19.XXXA Contact with other heat and hot substances, initial encounter; Y92.9 Unspecified place or not applicable
CPT/HCPCS: 99212; G0463

== ENCOUNTER 2018-12-06 17:46 | Emergency (ER) | payer MEDICARE ==
--- NOTE | 2018-12-06 18:29 | ED ---
Complex/Multi-Sys Presentation - HPI Summary HPI Summary: A 68 y/o M referred by his PCP presents to ED with c/o intermittent episodes of RUE pain from his elbow to shoulder onset a few days ago. He attempted to reproduce the pain but is unable to, and is unsure of the possible cause. He has additional complaints of R-sided jaw discomfort described as numbness as well as RLE weakness more so than at baseline for the past several days. His BP was elevated today, it was in the 150s systolic at home, which is high for him. Denies fever, chills. Vitals in room HR: 57 bpm, BP: 159/91. - History Of Current Complaint Chief Complaint: EDGeneral Time Seen by Provider: 12/06/18 18:25 Hx Obtained From: Patient Onset/Duration: Lasting Days, Still Present Timing: Intermittent, Lasting: - RUE pain Severity Currently: Moderate Severity Initially: Moderate Character: Sharp Associated Signs And Symptoms: Positive: Weakness - to RLE, Other - pos: elevated BP, R-sided jaw numbness. neg: chills. Negative: Fever - Allergies/Home Medications Allergies/Adverse Reactions: Allergies Allergy/AdvReac Type Severity Reaction Status Date / Time No Known Allergies Allergy Verified 12/06/18 18:09 Home Medications: Home Medications Finasteride TAB* [Proscar TAB*] 5 mg PO DAILY 12/06/18 [History Confirmed ] Lisinopril/HCTZ 20/12.5(NF) [Zestoretic 20/12.5(NF)] 1 tab PO DAILY 12/06/18 [ History Confirmed 12/06/18] PMH/Surg Hx/FS Hx/Imm Hx Previously Healthy: No Endocrine/Hematology History: Denies: Hx Diabetes Cardiovascular History: Reports: Hx Hypertension, Other Cardiovascular Problems/ Disorders - Hx HTN Denies: Hx Pacemaker/ICD GI History: Reports: Other GI Disorders - Hx Diverticulosis History: Reports: Hx Benign Prostatic Hyperplasia Musculoskeletal History: Reports: Other Musculoskeletal History - L knee repair Sensory History: Denies: Hx Hearing Aid Psychiatric History: Denies: Hx Panic Disorder - Surgical History Surgery Procedure, Year, and Place: L knee repair , Lower L abdominal fatty tumor removed , cervical spine bone spur removed 2005, R cataract removed 2011, bone spur compressed Infectious Disease History: No Infectious Disease History: Reports: Hx Hepatitis Denies: Traveled Outside the [place] in Last 30 Days - Family History Known Family History: Positive: Cardiac Disease, Diabetes - Social History Occupation: Employed Part-time, Retired Lives: With Family Alcohol Use: Daily Hx Substance Use: No Substance Use Type: Reports: None Hx Tobacco Use: No Smoking Status (MU): Never Smoked Tobacco Review of Systems Negative: Fever, Chills Positive: Other - pos: elevated BP Musculoskeletal: Other - pos: RUE pain from elbow to shoulder Positive: Weakness - RLE, Numbness - R-side of jaw All Other Systems Reviewed And Are Negative: Yes Physical Exam - Summary Physical Exam Summary: VITAL SIGNS: Reviewed. GENERAL: Patient is a well-developed and nourished MALE who is lying comfortable in the stretcher. Patient is not in any acute respiratory distress. HEAD AND FACE: No signs of trauma. No ecchymosis, hematomas or skull depressions. No sinus tenderness. EYES: PERRLA, EOMI x 2, No injected conjunctiva, no nystagmus. No photophobia. EARS: Hearing grossly intact. Ear canals and tympanic membranes are within normal limits. MOUTH: Oropharynx within normal limits. NECK: Supple, trachea is midline, no adenopathy, no JVD, no carotid bruit, no c- spine tenderness, neck with full ROM. No meningeal signs, no Kernig's or Brudzinskis signs. CHEST: Symmetric, no tenderness at palpation LUNGS: Clear to auscultation bilaterally. No wheezing or crackles. CVS: Regular rate and rhythm, S1 and S2 present, no murmurs or gallops appreciated. ABDOMEN: Soft, non-tender. No signs of distention. No rebound, no guarding, and no masses palpated. Bowel sounds are normal. EXTREMITIES: FROM in all major joints, no edema, no cyanosis or clubbing. NEURO: Alert and oriented x 3. No acute neurological deficits. Speech is normal and follows commands. SKIN: Dry and warm GCS: 15 Triage Information Reviewed: Yes Vital Signs On Initial Exam: Initial Vitals Temp Pulse Resp BP Pulse Ox 97.6 F 55 16 169/87 98 12/06/18 18:02 12/06/18 18:02 12/06/18 18:02 12/06/18 18:02 12/06/18 18:02 Vital Signs Reviewed: Yes Diagnostics - Vital Signs Vital Signs Temp Pulse Resp BP Pulse Ox 12/06/18 18:24 52 16 97 12/06/18 18:23 52 14 159/91 99 12/06/18 18:02 97.6 F 55 16 169/87 98 - Laboratory Result Diagrams: 12/06/18 19:10 12/06/18 19:10 Lab Statement: Any lab studies that have been ordered have been reviewed, and results considered in the medical decision making process. - Radiology CXR Radiology Interpretation Completed By: ED Physician Summary of Radiographic Findings: No acute pathology. - CT BRAIN CT Interpretation Completed By: Radiologist Summary of CT Findings: IMPRESSION: 1. No acute intracranial abnormality. 2. Mild chronic small vessel ischemic disease. ED provider has reviewed this report. C-SPINE CT Interpretation Completed By: Radiologist Summary of CT Findings: IMPRESSION: 1. Moderate multilevel cervical spondylopathy causing canal stenosis at most levels most advanced at C5-C6. No definite nerve root compression. 2. Multiple thyroid nodules. Followup with thyroid ultrasound recommended. ED provider has reviewed this report. - EKG 1840 Cardiac Rate: Bradycardia - 49 bpm EKG Rhythm: Sinus Bradycardia EKG Comparison: No Significant Change - from EKG on 02/13/13. Summary of EKG Findings: RBBB. Re-Evaluation - Re-Evaluation 1 Re-Evaluation Time: 20:10 Change: Improved Comment: Discussing results with pt and plans for D/C. Complex Multi-Symp Course/Dx Assessment/Plan: This patient is a 68-year-old male who presents to the emergency department with chief complaint of having right-sided facial numbness and also right upper extremity numbness and pain. Patient has no other complaints. Blood work without any significant abnormality except for potassium level of 3.4 for which the patient was given potassium chloride. Chest x-ray impression: No acute pathology. Head CT impression: No acute intracranial abnormality. Mild chronic small vessel ischemic disease. C-spine CT impression: moderate multilevel cervical spondylopathy causing, no cyanosis is a most level most advanced at C5-C6. No definite nerve root compression. Multiple flying nodules. In the ED course the patient was given Decadron and Toradol for the pain. I believe that symptoms therefore the glove that they are secondary to the C5 5 and C6 cervical spondylopathy. Therefore the patient will be discharged home with follow-up with Dr. Montaño, neurosurgery. Patient will be discharged home with a prescription for prednisone and ibuprofen. Patient reports that he is not in severe distress or pain, therefore , opiates were not prescribed. Patient is hemodynamically stable alert and oriented 3. All his questions and concerns were answered to satisfaction. - Diagnoses Provider Diagnoses: Radiculopathy Discharge - Sign-Out/Discharge Documenting (check all that apply): Patient Departure - D/C Patient Received Moderate/Deep Sedation with Procedure: No - Discharge Plan Condition: Stable Disposition: HOME Prescriptions: Ibuprofen TAB* [Motrin TAB* 600 MG] 600 mg PO Q6H PRN #20 tab PRN Reason: Pain predniSONE TAB* [Deltasone 20 MG TAB*] 40 mg PO DAILY #8 tab Patient Education Materials: Ibuprofen (By mouth), Prednisone (By mouth), Cervical Radiculopathy (ED) Referrals: Ping Felipe MD [Primary Care Provider] - 3 Days Meño Neves MD [Medical Doctor] - Additional Instructions: RETURN TO THE ED FOR ANY WORSENING OR NEW SYMPTOMS. - Billing Disposition and Condition Condition: STABLE Disposition: Home - Attestation Statements Document Initiated by Scribe: Yes Documenting Scribe: Miya Lynn Provider For Whom Scribe is Documenting (Include Credential): Dr. Real Garcia MD Scribe Attestation: Miya Molina scribed for Dr. Real Garcia MD on 12/06/18 at 2228. Scribe Documentation Reviewed: Yes Provider Attestation: The documentation as recorded by the Miya michael accurately reflects the service I personally performed and the decisions made by me, Dr. Real Garcia MD Status of Scribe Document: Viewed
[2018-12-06 19:17] LABS: ABS Basophils 0.1 10^3/ul (0-0.2); ABS Eosinophils 0.3 10^3/ul (0-0.6); ABS Lymphocytes 1.5 10^3/ul (1.0-4.8); ABS Monocytes 0.5 10^3/ul (0-0.8); ABS Nucleated RBC 0 10^3/ul; Eosinophil % 3.9 %; Hematocrit 46 % (42-52); Hemoglobin 15.8 g/dl (14.0-18.0); Lymphocyte % 20.5 %; Mean Corpuscular HGB Conc 35 g/dl (31-36); Mean Corpuscular Hemoglobin 31 pg (27-31); Mean Corpuscular Volume 90 fL (80-94); Mean Platelet Volume 7.9 fL (7.4-10.4); Nucleated Red Blood Cells % 0.1; Platelet Count 167 10^3/ul (150-450); Red Blood Count 5.06 10^6/ul (4.00-5.40); Red Cell Distribution Width 13 % (10.5-15); White Blood Count 7.4 10^3/ul (3.5-10.8)
[2018-12-06 19:35] LABS: Albumin 4.3 g/dL (3.2-5.2); Albumin/Globulin Ratio 1.7 (1-3); Calcium 9.2 mg/dL (8.6-10.3); EGFR African American 76.3 (>60); EGFR Non-African American 63.1 (>60); Globulin 2.5 g/dL (2-4); Magnesium 2.1 mg/dL (1.9-2.7); Potassium 3.4 mmol/L (3.5-5.0); Total Bilirubin 0.9 mg/dL (0.2-1.0); Total Protein 6.8 g/dL (6.4-8.9)
[2018-12-06 19:39] LABS: CKMB ng/mL 1.4 ng/mL (0.6-6.3)
[2018-12-06 19:58] LABS: TSH (Thyroid Stimulating Horm) 1.67 mcIU/mL (0.34-5.60)
[2018-12-06] MEDS ORDERED: Potassium Chlor TAB* 20 MEQ TAB.ER PO ONE (19:58)
[2018-12-06] MEDS ORDERED: Ketorolac INJ* 30 MG/ML 1 ML VIAL IV PUSH ONE (20:03)
[2018-12-06] MEDS ORDERED: Dexamethasone IV* 4 MG/ML 1 ML (4 MG) IV SLOW PU ONE (20:03)
[2018-12-06 20:17] LABS: Urine Appearance Clear; Urine Bilirubin Negative (Negative); Urine Blood Negative (Negative); Urine Color Yellow; Urine Glucose Negative (Negative); Urine Ketones Trace (Negative); Urine Nitrite Negative (Negative); Urine Protein Negative (Negative); Urine Specific Gravity 1.012 (1.010-1.030); Urine Urobilinogen Negative (Negative)
[2018-12-06 20:35] VITALS: BP 123/72
[2018-12-06] MEDS ORDERED: Ketorolac INJ* 30 MG/ML 1 ML VIAL IM ONE (20:42)
[2018-12-06] MEDS ORDERED: Dexamethasone IV* 4 MG/ML 1 ML (4 MG) IM ONE (20:43)
== END 2018-12-06 20:54 | disposition home or self-care (01) ==
LOC: ED 17:46
DX: M54.10 Radiculopathy, site unspecified (principal); R53.1 Weakness; I10 Essential (primary) hypertension; N40.0 Benign prostatic hyperplasia without lower urinary tract symptoms
CPT/HCPCS: 36415; 70450; 71046; 72125; 80053; 81003; 82550; 82553; 82607; 83605; 83735; 83880; 84443; 84484; 85025; 93005; 96372; 96374; 96375; 99283; A9270-GY; J1100; J1885